=== PATIENT | female | born 1970 | race Caucasian/White ===

== ENCOUNTER 2017-01-09 08:26 | Emergency (ER) | payer BC ==
[~2017-01-09] VITALS: Ht 157.5 cm; Wt 69.9 kg
[~2017-01-09 08:26] MED LIST: AMITRIPTYLINE H10 MG PO; AMITRIPTYLINE H25 MG; CHANTIX1 EACH; CHANTIX1 MG; CYCLOBENZAPRINE5 MG; HYDROCODON-ACE1 EAC3; HYDROCODON-ACE1 EAC8 PO; IBUPROFEN800 MG; PREVACID15 MG PO; VAGIFEM10 MCG; ZANAFLEX4 M1 PO
[2017-01-09 09:15] LABS: EOSINOPHIL (%) 0.6 % (0-5); EOSINOPHIL COUNT 0.1 K/uL (0-0.3); HEMATOCRIT 41.1 % (36.0-46.0); IMMATURE GRANULOCYTE (%) 0.3 % (0.0-0.7); INSTRUMENT ABS NEUTROPHIL CT 8.2 K/uL; LYMPHOCYTE COUNT 3.7 K/uL (1.0-2.8); MCH 27.3 PG (29.0-34.0); MCHC 32.4 G/DL (30.0-36.0); MCV 84.4 FL (83-99); MEAN PLAT.VOLUME 10.5 uM^3 (9.5-12.4); MONOCYTE (%) 4.7 % (3-12); MONOCYTE COUNT 0.6 K/uL (0-0.8); NEUTROPHIL (%) 65.1 % (45-76); NEUTROPHIL COUNT 8.2 K/uL (1.8-6.4); PLATELET COUNT 304 K/uL (156-360); RBC DIS.WIDTH-CV 13.3 % (11.8-14.6); RBC DIS.WIDTH-SD 41.2 % (39-53); RED BLOOD COUNT 4.87 M/uL (3.80-5.20); WHITE BLOOD COUNT 12.6 K/uL (4.1-10.2)
[2017-01-09 09:19] LABS: INTER. NORMALIZED RATIO 1.2; PROTHROMBIN TIME 13.9 SEC (10.2-12.9)
[2017-01-09 09:28] LABS: CHLORIDE 105 mEq/L (99-109); POTASSIUM 3.6 mEq/L (3.7-5.4); SODIUM 139 mEq/L (136-147)
[2017-01-09 09:29] LABS: GLUCOSE 101 mg/dL (70-99)
[2017-01-09 09:31] LABS: ANION GAP 9 MEQ/L (2-14)
[2017-01-09 09:33] LABS: GFR ESTIMATE (CALCULATED) > 59 mL/min/
[2017-01-09 09:34] LABS: UREA NITROGEN (BUN) 7 mg/dL (9-23)
[2017-01-09 10:28] VITALS: BP 128/78
== END 2017-01-09 10:29 | disposition home or self-care (01) ==
LOC: EME 08:26
PROVIDERS: Emergency Medicine
DX: R04.0 Epistaxis (principal); F17.200 Nicotine dependence, unspecified, uncomplicated; Z88.6 Allergy status to analgesic agent
CPT/HCPCS: 80048; 85025; 85610; 99281; 99284